=== PATIENT | female | born 1945 | race Caucasian/White ===

== ENCOUNTER 2021-01-03 09:26 | Emergency (ER) | payer MEDICARE, BC ==
[2021-01-03 10:22] VITALS: BP 194/93; PULSE 56
[2021-01-03] MEDS ORDERED: Doxycycline 100 MG Cap PO ONE (10:28)
--- NOTE | 2021-01-03 10:32 | EDM.PDOC ---
ED HPI GENERAL MEDICAL PROBLEM - General Chief Complaint: General Stated Complaint: SWEATS/VOMITTING Time Seen by Provider: 01/03/21 10:10 Source of Information: Reports: Patient History Limitations: Reports: No Limitations - History of Present Illness INITIAL COMMENTS - FREE TEXT/NARRATIVE: 75-year-old female presents to the emergency room after having about a 40 to 50- minute episode of what sounds like a vasovagal near syncope at home. She woke up feeling fine, went outside to assess the work she was planning on doing today and then went back into the house. She then looked in the mirror to adjust her hair and suddenly felt lightheaded and diaphoretic. Over the next few minutes she became very diaphoretic, thought she looked pale in the mirror and felt dizzy. She did not feel nauseous initially, did not feel palpitations, shortness of breath, pain or other symptoms but was concerned she was going to pass out. After a few minutes of standing, she lowered herself to the floor and crawled to her daughter to explain what was going on, and her friend brought her in to be seen. By the time she got into the car to come into the hospital she was already feeling normal. This has not happened to her in the past. She has known hypertension but refuses to take medication. She also had a recent tick bite to her right thigh. Onset: Sudden (Fairly sudden onset about an hour and a half ago) Duration: Minutes: (Symptoms lasted about 45 minutes) Location: Reports: Generalized Improves with: Reports: Other (The passing of time seemed to help) Associated Symptoms: Reports: Diaphoresis, Malaise, Weakness, Other (Some nausea but no vomiting) - Related Data Allergies Allergy/AdvReac Type Severity Reaction Status Date / Time codeine AdvReac Unknown Nausea Verified 01/03/21 09:55 Home Meds: Home Meds Dorzolamide/Timolol/Pf [Dorzolamide-Timolol 2%-0.5%] 1 drop EYEBOTH BID 01/03/21 [History] Latanoprost [Xalatan 0.005% Ophth Soln] 1 drop EYEBOTH BEDTIME 01/03/21 [History] Past Medical History HEENT History: Reports: Glaucoma, Impaired Vision, Macular Degeneration Cardiovascular History: Reports: Hypertension [employer] History: Reports: Musculoskeletal History: Reports: Arthritis Neurological History: Reports: CVA - Infectious Disease History Infectious Disease History: Reports: Chicken Pox, Measles, Mumps Social & Family History - Tobacco Use Tobacco Use Status *Q: Never Tobacco User - Caffeine Use Caffeine Use: Reports: None - Recreational Drug Use Recreational Drug Use: No ED ROS GENERAL - Review of Systems Review Of Systems: See Below Constitutional: Reports: Malaise. Denies: Fever, Chills HEENT: Denies: Vision Change Respiratory: Denies: Shortness of Breath Cardiovascular: Denies: Chest Pain, Palpitations GI/Abdominal: Reports: Nausea. Denies: Abdominal Pain, Constipation, Diarrhea, Vomiting Musculoskeletal: Reports: No Symptoms Skin: Reports: Pallor, Diaphoresis Neurological: Reports: Dizziness, Weakness Psychiatric: Reports: No Symptoms ED EXAM, GENERAL - Physical Exam Exam: See Below Exam Limited By: No Limitations General Appearance: Alert, No Apparent Distress Eye Exam: Bilateral Eye: Normal Inspection Head: Atraumatic Neck: Supple, Non-Tender Respiratory/Chest: Lungs Clear Cardiovascular: Regular Rate, Rhythm. No: Bradycardia, Tachycardia, Extra Beats GI/Abdominal: Soft, Non-Tender Extremities: Normal Inspection. No: Pedal Edema Neurological: Alert, Oriented, No Motor/Sensory Deficits Skin Exam: Warm, Dry, Other (1 small reddened lesion just a few millimeters wide on the right thigh) Course - Vital Signs Last Recorded V/S: Last Vital Signs Temp 98.1 F 01/03/21 10:05 Pulse 56 L 01/03/21 10:21 Resp 17 01/03/21 10:05 BP 194/93 H 01/03/21 10:21 Pulse Ox 97 01/03/21 10:21 - Orders/Labs/Meds Meds: Medications Discontinued Medications Generic Name Dose Route Start Last Admin Trade Name Freq PRN Reason Stop Dose Admin Doxycycline Hyclate 200 mg 01/03/21 10:28 01/03/21 10:37 Doxycycline 100 Mg Cap PO 01/03/21 10:29 200 mg ONETIME ONE Administration - Re-Assessments/Exams Free Text/Narrative Re-Assessment/Exam: 01/03/21 10:44 Had a long conversation with the patient about vasovagal near syncope, her symptoms correlate well with vagus nerve stimulation. She knows she has hypertension, refuses to take medication. Blood pressure was 190/90 on discharge. She also did not get her Covid vaccine, refuses to get that as well. She was given 1 200 mg doxycycline dose for the tick bite but no further treatment is necessary for that. She is going to call the clinic and get an appointment for a complete physical this week, return today if symptoms recur. Departure - Departure Time of Disposition: 10:47 Disposition: Home, Self-Care 01 Clinical Impression: Vasovagal near syncope - Discharge Information Instructions: Near-Syncope, [id number] Referrals: Nikhil Umanzor Sr, MD [Primary Care Provider] - Forms: ED Department Discharge Care Plan Goals: Avoid extra salt, stay hydrated, increase activity as tolerated, and call Dr. Umanzor's office to schedule a regular checkup. Return anytime if symptoms recur or you develop other concerns. Sepsis Event Note (ED) - Evaluation Sepsis Screening Result: No Definite Risk - Focused Exam Vital Signs: Vital Signs Temp Pulse Resp BP Pulse Ox 01/03/21 10:21 56 L 194/93 H 97 01/03/21 10:05 98.1 F 61 17 200/98 H 96 01/03/21 09:58 98.1 F 61 17 200/98 H 96
== END 2021-01-03 10:53 | disposition home or self-care (01) ==
LOC: JP.ED 09:26
DX: R55 Syncope and collapse (principal); I10 Essential (primary) hypertension; Z88.5 Allergy status to narcotic agent
CPT/HCPCS: 99283; A9270

== ENCOUNTER 2023-01-19 03:55 | Emergency (ER) | payer MEDICARE, BC ==
[2023-01-19] MEDS ORDERED: Sodium Chloride 0.9% 10 ML Syringe FLUSH PRN (04:26)
[2023-01-19] MEDS ORDERED: Ondansetron 4 MG/2 ML SDV IVPUSH ONE (04:27)
[2023-01-19] MEDS ORDERED: Naloxone 0.4 MG/ML SDV IVPUSH PRN (04:40)
[2023-01-19] MEDS ORDERED: HYDROmorphone 0.5 MG/0.5 ML Syringe IVPUSH ONE (04:40)
[2023-01-19 04:44] LABS: BASOPHILS PERCENT AUTO 0.2 % (0.1-1.3); HEMATOCRIT 40.3 % (34.3-46.0); HEMOGLOBIN 13.5 g/dL (11.2-15.5); IMMATURE GRAN ABSOLUTE AUTO 0.03 K/uL (0.00-0.23); IMMATURE GRAN PERCENT AUTO 0.4 % (0.0-0.7); LYMPHOCYTES ABSOLUTE AUTO 0.78 K/uL (0.8-3.3); LYMPHOCYTES PERCENT AUTO 9.3 % (11.4-47.7); MEAN CORPUSCULAR HEMOGLOBIN 28.6 pg (31.6-35.5); MEAN CORPUSCULAR HGB CONC 33.5 g/dL (31.6-35.5); MEAN CORPUSCULAR VOLUME 85.4 fL (81.4-99.0); MONOCYTES ABSOLUTE AUTO 0.32 K/uL (0.20-0.90); MONOCYTES PERCENT AUTO 3.8 % (3.3-12.6); NEUTROPHILS ABSOLUTE AUTO 7.24 K/uL (1.0-7.6); NEUTROPHILS PERCENT AUTO 86.3 % (40.0-78.1); PLATELET COUNT,PLT 151 K/uL (130-375); RED BLOOD CELL COUNT 4.72 M/uL (3.77-5.24); WHITE BLOOD CELL COUNT,WBC 8.4 K/uL (3.2-11.0)
[2023-01-19 05:02] LABS: BASOPHILS ABSOLUTE AUTO 0.02 K/uL (0.00-0.10)
[2023-01-19 05:06] LABS: C-REACTIVE PROTEIN 0.22 mg/dL (0.0-0.3)
[2023-01-19 05:07] LABS: A/G RATIO 1.2 (1.2-2.2); ALANINE AMINOTRANSFERASE,ALT 42 U/L (12-78); ALBUMIN 3.6 g/dL (3.4-5.0); ALKALINE PHOSPHATASE 73 U/L (46-116); ANION GAP 9.4 mmol/L (5.0-14.0); ASPARTATE AMNIOTRANSFERASE,AST 45 U/L (15-37); BILIRUBIN TOTAL 0.7 mg/dL (0.2-1.0); BLOOD UREA NITROGEN,BUN 23 mg/dL (7-18); CALCIUM 8.6 mg/dL (8.5-10.1); CARBON DIOXIDE,CO2 27 mmol/L (21-32); CHLORIDE,CL 105 mmol/L (100-108); CREATININE 1.1 mg/dL (0.6-1.0); EST CRCL DRUG DOSING (CG) 39.46 mL/min; ESTIMATED GFR 51 mL/min (>60); GLUCOSE RANDOM 226 mg/dL (74-106); POTASSIUM,K 3.6 mmol/L (3.6-5.2); PROTEIN TOTAL,TP 6.7 g/dL (6.4-8.2); SODIUM,NA 141 mmol/L (140-148)
[2023-01-19] MEDS ORDERED: Sodium Chloride 0.9% 50 ML IV STA (05:18)
[2023-01-19] MEDS ORDERED: Iopamidol 612 MG/ML 100 ML Bottle IV STA (05:18)
[2023-01-19] MEDS ORDERED: Sodium Chloride 0.9% 10 ML Syringe FLUSH STA (05:19)
[2023-01-19 05:24] LABS: APPEARANCE,URINE CLEAR (CLEAR); COLOR,URINE YELLOW (YELLOW); PROTEIN,URINE NEGATIVE (NEGATIVE)
[2023-01-19 05:25] LABS: BILIRUBIN,URINE NEGATIVE (NEGATIVE); GLUCOSE,URINE 100 mg/dL (NEGATIVE); KETONES,URINE 15 mg/dL (NEGATIVE); LEUKOCYTE ESTERASE,URINE NEGATIVE (NEGATIVE); NITRITE,URINE NEGATIVE (NEGATIVE); OCCULT BLOOD,URINE TRACE-INTACT (NEGATIVE); UROBILINOGEN,URINE 0.2 EU/dL (0.2-1.0)
[2023-01-19 05:40] LABS: AMORPHOUS SEDIMENT,URINE RARE; BACTERIA,URINE NOT SEEN; EPITHELIAL CELLS,URINE NOT SEEN; MUCUS,URINE NOT SEEN; RBC,URINE 0-5 (0-5); WBC,URINE 0-5 (0-5)
[2023-01-19] MEDS ORDERED: Sodium Chloride 0.9% 500 ML IV ONE (06:47)
[2023-01-19 07:45] VITALS: BP 168/87; PULSE 68
== END 2023-01-19 08:10 | disposition home or self-care (01) ==
LOC: JP.ED 03:55
DX: N13.2 Hydronephrosis with renal and ureteral calculous obstruction (principal); R11.2 Nausea with vomiting, unspecified; I10 Essential (primary) hypertension; R73.9 Hyperglycemia, unspecified; R81 Glycosuria; Z88.5 Allergy status to narcotic agent; Z86.73 Personal history of transient ischemic attack (TIA), and cerebral infarction without residual deficits
CPT/HCPCS: 36415; 74177; 80053; 81001; 83605; 83690; 83735; 84484; 85025; 86140; 93005; 93010; 96360; 99284; J3490; J7040; Q9967